=== PATIENT | male | born 1975 | race Two or more races ===

== ENCOUNTER 2021-12-06 19:56 | Emergency (ER) | payer OTHER ==
[2021-12-06 20:14] VITALS: BP 101/72; PULSE 98; RESP 22; TEMP 99.2; BMI 29.0
[2021-12-06 20:45] LABS: VENOUS O2 SATURATION 89.9 % (70-80); VENOUS PCO2 38.7 mmHg (38-52); VENOUS PH 7.402 (7.310-7.410)
[2021-12-06 20:46] LABS: BASO % 1.1 % (0-2.0); EOS % 5.2 % (0-4.5); HEMATOCRIT 29.4 % (35.4-49); HEMOGLOBIN 10.3 GM/dL (11.7-16.9); LYMPH % 25.6 % (8-40); MCH 32.3 pg (25.7-33.7); MCHC 34.9 g/dl (32.0-35.9); MEAN CELL VOLUME 92.5 fl (80-96); MEAN PLT VOLUME 9.8 fl (7.5-11.1); MONO % 8.4 % (3.8-10.2); NEUT % 59.7 % (42.8-82.8); PLATELET COUNT 388 10^3/uL (134-434); RBC 3.18 M/mm3 (4.00-5.60); RDW 14.2 % (11.9-15.9); WHITE BLOOD COUNT 15.5 K/mm3 (4.0-10.0)
[2021-12-06 21:12] LABS: ALBUMIN 2.9 g/dl (3.4-5.0); CALCIUM 9.6 mg/dL (8.5-10.1)
[2021-12-06 21:15] LABS: CREATININE 0.5 mg/dL (0.55-1.3)
[2021-12-06 21:16] LABS: PHOSPHOROUS 5.2 mg/dL (2.5-4.9)
[2021-12-06 21:17] LABS: BILIRUBIN,TOTAL 0.3 mg/dL (0.2-1); TOT PROT 9.6 g/dl (6.4-8.2)
[2021-12-06 21:33] LABS: ACTIVATED PTT 21.3 SECONDS (25.2-36.5); INR 1.2 (0.83-1.09); PROTHROMBIN TIME (PATIENT) 13.8 SEC (9.7-13.0)
== END 2021-12-06 21:35 | disposition short-term general hospital (02) ==
LOC: JER 19:56
DX: J95.03 Malfunction of tracheostomy stoma (principal); R09.02 Hypoxemia; J96.01 Acute respiratory failure with hypoxia
CPT/HCPCS: 36415; 80053; 82803; 83605; 83735; 84100; 85025; 85610; 85730; 99291

== ENCOUNTER 2022-01-08 06:30 | Emergency (ER) | payer OTHER ==
[2022-01-08 06:47] VITALS: TEMP 98; BMI 26.3
[2022-01-08 10:34] VITALS: BP 132/90; PULSE 80; RESP 18
== END 2022-01-08 09:05 | disposition short-term general hospital (02) ==
LOC: JER 06:30
DX: J95.09 Other tracheostomy complication (principal)
CPT/HCPCS: 99283-25